=== PATIENT | female | born 1975 | race Caucasian/White ===

== ENCOUNTER 2016-10-29 06:42 | Day surgery (SDC) | payer OTHER ==
[~2016-10-29] VITALS: Ht 144.8 cm; Wt 88.0 kg
[~2016-10-29 06:42] MED LIST: CLARITIN,ALAVAR10 MG PO; EXCEDRIN MIGRA1 EAC3 PO; LINZESS145 MCG PO; MOTRIN800 MG PO; PROTONIX40 MG PO; ZANTAC300 MG PO; ZOLOFT50 MG PO
[2016-10-29 07:39] VITALS: BP 126/61
[2016-10-29 10:20] VITALS: BP 149/75
[2016-10-29 11:25] VITALS: BP 127/79
== END 2016-10-29 11:55 | disposition home or self-care (01) ==
LOC: SDC 06:42
PROC: 0UDB8ZX Extraction of Endometrium, Via Natural or Artificial Opening Endoscopic, Diagnostic (ICD-10-PCS; principal; 2016-10-29)
DX: N84.0 Polyp of corpus uteri (principal); K21.9 Gastro-esophageal reflux disease without esophagitis; F41.8 Other specified anxiety disorders; E66.9 Obesity, unspecified; Z68.41 Body mass index [BMI] 40.0-44.9, adult; Z82.49 Family history of ischemic heart disease and other diseases of the circulatory system; Z82.62 Family history of osteoporosis; Z80.7 Family history of other malignant neoplasms of lymphoid, hematopoietic and related tissues; Z83.3 Family history of diabetes mellitus; Z80.0 Family history of malignant neoplasm of digestive organs; Z80.3 Family history of malignant neoplasm of breast; Z82.0 Family history of epilepsy and other diseases of the nervous system
CPT/HCPCS: 84702; 88305; J1170; J1885; J2250; J3010

== ENCOUNTER 2017-01-13 15:38 | Emergency (ER) | payer OTHER ==
[~2017-01-13] VITALS: Ht 144.8 cm; Wt 88.4 kg
[2017-01-13 16:48] LABS: EOSINOPHIL (%) 0 % (0-5); HEMATOCRIT 40.7 % (36.0-46.0); IMMATURE GRANULOCYTE (%) 0.3 % (0.0-0.7); INSTRUMENT ABS NEUTROPHIL CT 8.7 K/uL; LYMPHOCYTE COUNT 1.2 K/uL (1.0-2.8); MCH 29.1 PG (29.0-34.0); MCHC 33.9 G/DL (30.0-36.0); MCV 85.7 FL (83-99); MEAN PLAT.VOLUME 9.6 uM^3 (9.5-12.4); MONOCYTE (%) 1.3 % (3-12); MONOCYTE COUNT 0.1 K/uL (0-0.8); NEUTROPHIL (%) 86.1 % (45-76); NEUTROPHIL COUNT 8.7 K/uL (1.8-6.4); PLATELET COUNT 301 K/uL (156-360); RBC DIS.WIDTH-CV 12.8 % (11.8-14.6); RBC DIS.WIDTH-SD 39.8 % (39-53); RED BLOOD COUNT 4.75 M/uL (3.80-5.20); WHITE BLOOD COUNT 10.1 K/uL (4.1-10.2)
[2017-01-13 16:58] LABS: CHLORIDE 109 mEq/L (99-109); POTASSIUM 4.4 mEq/L (3.7-5.4); SODIUM 140 mEq/L (136-147)
[2017-01-13 17:00] LABS: GLUCOSE 118 mg/dL (70-99)
[2017-01-13 17:01] LABS: ANION GAP 12 MEQ/L (2-14)
[2017-01-13 17:04] LABS: GFR ESTIMATE (CALCULATED) > 59 mL/min/
[2017-01-13 17:05] LABS: UREA NITROGEN (BUN) 15 mg/dL (9-23)
[2017-01-13 21:42] VITALS: BP 126/76
== END 2017-01-13 21:43 | disposition home or self-care (01) ==
LOC: EME 15:38
PROVIDERS: Emergency Medicine
DX: J40 Bronchitis, not specified as acute or chronic (principal); F32.9 Major depressive disorder, single episode, unspecified; G43.909 Migraine, unspecified, not intractable, without status migrainosus; Z88.8 Allergy status to other drugs, medicaments and biological substances; Z91.040 Latex allergy status
CPT/HCPCS: 71020; 80048; 85025; 93005; 94640; 94640 76; 99281; 99285; J1100; J1885; J7644

== ENCOUNTER 2017-07-19 10:26 | Emergency (ER) | payer OTHER ==
[~2017-07-19] VITALS: Ht 142.2 cm; Wt 79.0 kg
[~2017-07-19 10:26] MED LIST changes: +TOPAMAX50 MG PO
[2017-07-19 10:53] LABS: HEMATOCRIT 41.2 % (36.0-46.0); MCH 30.1 PG (29.0-34.0); MCV 88.6 FL (83-99); PLATELET COUNT 232 K/uL (156-360); RBC DIS.WIDTH-CV 13.7 % (11.8-14.6); RBC DIS.WIDTH-SD 44.9 % (39-53); RED BLOOD COUNT 4.65 M/uL (3.80-5.20); WHITE BLOOD COUNT 5.3 K/uL (4.1-10.2)
[2017-07-19 11:09] LABS: CHLORIDE 111 mEq/L (99-109); SODIUM 139 mEq/L (136-147)
[2017-07-19 11:11] LABS: GLUCOSE 99 mg/dL (70-99)
[2017-07-19 11:15] LABS: CREATININE 0.8 mg/dL (0.6-1.3); GFR ESTIMATE (CALCULATED) > 59 mL/min/
[2017-07-19 11:16] LABS: QUANTITATIVE HCG < 4.0 MIU/ML; UREA NITROGEN (BUN) 9 mg/dL (9-23)
[2017-07-19] MEDS ORDERED: AUGMENTIN875 MG PO (16:44)
[2017-07-19 17:51] VITALS: BP 127/76
== END 2017-07-19 17:52 | disposition home or self-care (01) ==
LOC: EME 10:26
PROVIDERS: Nurse Practitioner Family; Physician Assistant
DX: R51 Headache (principal); G43.909 Migraine, unspecified, not intractable, without status migrainosus; J32.9 Chronic sinusitis, unspecified; F32.9 Major depressive disorder, single episode, unspecified; Z88.5 Allergy status to narcotic agent; Z91.040 Latex allergy status; Z88.1 Allergy status to other antibiotic agents; Z88.6 Allergy status to analgesic agent
CPT/HCPCS: 70450; 71046; 80048; 84702; 85027; 87502; 99281; 99285; J0780; J1885; J7030

== ENCOUNTER 2017-08-03 12:04 | Emergency (ER) | payer OTHER ==
[~2017-08-03] VITALS: Ht 142.2 cm; Wt 79.0 kg
[~2017-08-03 12:04] MED LIST changes: +AUGMENTIN875 MG PO
[2017-08-03 13:12] LABS: BASOPHIL (%) 0.2 % (0-1); EOSINOPHIL (%) 0.1 % (0-5); HEMOGLOBIN 13.7 G/DL (11.9-15.5); IMMATURE GRANULOCYTE (%) 0.5 % (0.0-0.7); LYMPHOCYTE (%) 10.9 % (15-42); LYMPHOCYTE COUNT 1.4 K/uL (1.0-2.8); MCH 30.3 PG (29.0-34.0); MCHC 35.1 G/DL (30.0-36.0); MCV 86.3 FL (83-99); MONOCYTE (%) 1.7 % (3-12); MONOCYTE COUNT 0.2 K/uL (0-0.8); NEUTROPHIL (%) 86.6 % (45-76); PLATELET COUNT 291 K/uL (156-360); RBC DIS.WIDTH-CV 13.2 % (11.8-14.6); RBC DIS.WIDTH-SD 41.3 % (39-53); RED BLOOD COUNT 4.52 M/uL (3.80-5.20); WHITE BLOOD COUNT 12.7 K/uL (4.1-10.2)
[2017-08-03 13:20] LABS: CHLORIDE 113 mEq/L (99-109); POTASSIUM 3.8 mEq/L (3.7-5.4); SODIUM 142 mEq/L (136-147)
[2017-08-03 13:21] LABS: MAGNESIUM 2.1 mg/dL (1.3-2.7)
[2017-08-03 13:21] LABS: INTER. NORMALIZED RATIO 1.1
[2017-08-03 13:22] LABS: GLUCOSE 106 mg/dL (70-99)
[2017-08-03 13:24] LABS: PTT 29.3 SEC (25-37)
[2017-08-03 13:26] LABS: CREATININE 0.7 mg/dL (0.6-1.3); GFR ESTIMATE (CALCULATED) > 59 mL/min/
[2017-08-03 13:27] LABS: UREA NITROGEN (BUN) 8 mg/dL (9-23)
[2017-08-03 13:33] LABS: TROP-I INTERPRETATION NEGATIVE; TROPONIN-I < 0.01 ng/mL (0.0-0.30)
[2017-08-03 16:52] VITALS: BP 128/73
== END 2017-08-03 17:05 | disposition home or self-care (01) ==
LOC: EME 12:04
PROVIDERS: Emergency Medicine
DX: J45.909 Unspecified asthma, uncomplicated (principal); F41.1 Generalized anxiety disorder; F32.9 Major depressive disorder, single episode, unspecified; Z88.5 Allergy status to narcotic agent; Z88.1 Allergy status to other antibiotic agents; Z91.040 Latex allergy status; Z88.6 Allergy status to analgesic agent
CPT/HCPCS: 71045; 80048; 83735; 84484; 85025; 85610; 85730; 93005; 99281; 99285